=== PATIENT | male | born 1990 | race Caucasian/White ===

== ENCOUNTER 2022-08-07 12:06 | Inpatient (IN) ==
--- NOTE | 2022-08-07 12:27 | Emergency Department Note ---
History of Present Illness General Chief complaint: Illness Stated complaint: [facility] Time Seen by Provider: 08/07/22 12:15 Source: patient Mode of arrival: ambulatory Limitations: no limitations History of Present Illness This patient is a 32-year-old male who presents to the emergency department requesting alcohol and drug rehabilitation. Patient states that he has been using methamphetamine since April 2022. He was using daily but was able to stop for a few weeks, however used again last night. He also admits to EtOH use and states that he has drank a sixpack per day for years. Last night he had 1 shot of alcohol. Last night was also his last time using methamphetamine. He states that he knows this is not sustainable and he would like to stop using drugs and alcohol altogether. He reports some recent cough and congestion but denies shortness of breath. Allergies Allergy/AdvReac Type Severity Reaction Status Date / Time No Known Allergies Allergy Verified 08/07/22 17:05 Past Med/Surg History Medical History (Updated 08/07/22 @ 21:13 by Bekah Gutierrez PA-C) Alcohol abuse with withdrawal Methamphetamine use No pertinent family history No significant past medical history Tachycardia Surgical History (Updated 08/07/22 @ 17:16 by WILLY Huff) No pertinent past surgical history Social History (Updated 08/07/22 @ 13:07 by Bekah Gutierrez PA-C) Smoking Status: Current every day smoker Second Hand Exposure: No; Do You Dip or Chew Tobacco: No; Tobacco Cessation Education Requested by Patient: No Hx Alcohol Use: Yes Alcohol type: beer Alcohol type Comment: 6 pack of beer Alcohol Intake Frequency Comment: daily Hx Substance Use: Yes Non-Prescribed Medications: Methamphetamines Last Used Substance: Days (ago) Last Used Substance Other:: One day ago Communication Ability: Effective Harp Maker Required: No Beliefs That Will Affect Care: None Current Living Situation: Other Current Living Situation Comment: Lives with roommate whom he rents to Other Information That Helps Us Care for You: No Feels Safe at Home: Yes Safety Concerns: Feels Safe At This Time Assistive Devices: None Physical Exam Vital Signs Vital Signs - 24 hr 08/07/22 12:13 08/07/22 12:13 08/07/22 12:51 Temperature 36.8 C 36.6 C Temperature Source Temporal Artery Scan Temporal Artery Scan Pulse Rate 111 H 107 H Pulse Rate from SpO2 Sensor Respiratory Rate 16 18 Blood Pressure 190/91 H Blood Pressure Mean 124 Pulse Oximetry 98 98 Oxygen Delivery Method Sepsis Recent Fever Within 48 Hours No Sepsis New/Unexplained Change in Mental Status N/A Sepsis Action Taken by Nursing No Action Required 08/07/22 12:29 08/07/22 12:50 08/07/22 13:00 Temperature Temperature Source Pulse Rate 102 H 104 H Pulse Rate from SpO2 Sensor 109 H 104 H Respiratory Rate 20 22 Blood Pressure Blood Pressure Mean Pulse Oximetry 99 98 98 Oxygen Delivery Method Room Air Sepsis Recent Fever Within 48 Hours Sepsis New/Unexplained Change in Mental Status Sepsis Action Taken by Nursing 08/07/22 13:30 08/07/22 13:58 08/07/22 13:58 Temperature Temperature Source Pulse Rate 110 H 114 H Pulse Rate from SpO2 Sensor 111 H 115 H Respiratory Rate 20 23 Blood Pressure 142/88 H 185/103 H Blood Pressure Mean 106 130 Pulse Oximetry 99 98 Oxygen Delivery Method Sepsis Recent Fever Within 48 Hours Sepsis New/Unexplained Change in Mental Status Sepsis Action Taken by Nursing 08/07/22 14:00 08/07/22 14:00 08/07/22 14:30 Temperature Temperature Source Pulse Rate 113 H Pulse Rate from SpO2 Sensor 113 H Respiratory Rate 24 Blood Pressure 191/113 H 192/122 H Blood Pressure Mean 139 145 Pulse Oximetry 98 Oxygen Delivery Method Sepsis Recent Fever Within 48 Hours Sepsis New/Unexplained Change in Mental Status Sepsis Action Taken by Nursing 08/07/22 14:30 08/07/22 15:00 08/07/22 15:00 Temperature Temperature Source Pulse Rate 113 H Pulse Rate from SpO2 Sensor 104 H Respiratory Rate 17 Blood Pressure 176/119 H Blood Pressure Mean 138 Pulse Oximetry 98 Oxygen Delivery Method Sepsis Recent Fever Within 48 Hours Sepsis New/Unexplained Change in Mental Status Sepsis Action Taken by Nursing 08/07/22 15:30 08/07/22 15:30 Temperature Temperature Source Pulse Rate 109 H Pulse Rate from SpO2 Sensor Respiratory Rate 20 Blood Pressure 174/103 H Blood Pressure Mean 126 Pulse Oximetry Oxygen Delivery Method Sepsis Recent Fever Within 48 Hours Sepsis New/Unexplained Change in Mental Status Sepsis Action Taken by Nursing VITALS: Vitals are noted on the nurse's note and reviewed by myself. GENERAL: This is a 32-year-old male, in no acute distress, well-developed well- nourished. SKIN: The skin was without rashes. EARS: External auditory canals clear, tympanic membranes pearly orr without er ythema or effusion bilaterally. EYES: Pupils equal round and reactive to light and accommodation. Extraocular movements intact. MOUTH: Mucous membranes moist. Tonsils are not enlarged. Pharynx without erythema or exudate. NECK: Supple without nuchal rigidity. No lymphadenopathy. HEART: Regular rate and rhythm without murmurs gallops or rubs. LUNGS: Clear to auscultation bilaterally without wheezes, rales or rhonchi. ABDOMEN: Positive bowel sounds x 4. Soft, nontender to palpation MUSCULOSKELETAL: Full range of motion throughout. Strength 5/5 throughout. NEURO: Patient was alert and oriented to person place and time. No focal neurological deficits. Course Administered Medications Thiamine HCl 100 mg/ Syringe 10 mls @ 2 mls/min IV QAM [facility] Stop: 09/06/22 17:14 Last Admin: 08/07/22 17:53 Dose: 2 mls/min Documented By: REBEKAH Folic Acid 1 mg/ Syringe 10 mls @ 5 mls[facility] [place] 09/06/22 17:14 Last Admin: 08/07/22 17:53 Dose: 5 mls/min Documented By: REBEKAH Discontinued Medications Gabapentin (Gabapentin 600 Mg Tab) 1,200 mg PO NOW ONE Stop: 08/07/22 17:31 Last Admin: 08/07/22 17:53 Dose: 1,200 mg Documented By: REBEKAH Sodium Chloride (Nss 1000ml) 1,000 mls @ 999 mls/hr IV .Q1H1M ONE Stop: 08/07/22 13:29 Last Infusion: 08/07/22 13:56 Dose: 0 mls/hr Documented By: Admin: 08/07/22 12:51 Dose: 999 mls/hr Documented By: REBEKAH Multivitamins 10 ml/ Thiamine HCl 100 mg/ Folic Acid 1 mg/Sodium Chloride 1,011.2 mls @ 500 mls/hr IV .Q2H2M ONE Stop: 08/07/22 19:31 Last Admin: 08/07/22 18:24 Dose: 500 mls/hr Documented By: REBEKAH Lorazepam (Lorazepam 2 Mg/1 Ml Vial) 1 mg IV NOW STA Stop: 08/07/22 12:30 Last Admin: 08/07/22 12:51 Dose: 1 mg Documented By: REBEKAH Medical Decision Making Differential Diagnosis Overdose, toxicologic, infection, hypoglycemia, electrolyte abnormalities, cardiac sources, intracerebral event, neurologic, trauma, as well as other pathologies. Home Medications Current Medication List: was personally reviewed by me Laboratory Data Attestation: I reviewed the patient's lab results. 08/07/22 12:55 08/07/22 12:55 Lab Results 08/07/22 08/07/22 08/07/22 Range/Units 12:55 12:55 12:55 WBC 11.76 H (4.8-10.8) K/ul RBC 5.13 (4.20-5.40) M/uL Hgb 15.7 (12.0-16.0) g/dl Hct 45.0 (37.0-47.0) % MCV 87.7 (80.0-100.0) fL MCH 30.6 (25.0-34.0) pg MCHC 34.9 (32.0-36.0) g/dL RDW Std Deviation 40.9 (36.4-46.3) fL RDW Coeff of Savi 12.7 (11.5-14.5) % Plt Count 390 (130-400) K/uL MPV 10.3 (9.4-12.4) fL Immature Gran % (Auto) 0.3 % Neut % (Auto) 70.4 % Lymph % (Auto) 21.7 % Haskell % (Auto) 6.6 % Eos % (Auto) 0.3 % Baso % (Auto) 0.7 % Neut # (Auto) 8.28 H (1.40-6.50) K/uL Lymph # (Auto) 2.55 (1.2-3.4) K/uL [place] # (Auto) 0.78 H (0.11-0.59) K/uL Eos # (Auto) 0.03 (0-0.50) K/uL Baso # (Auto) 0.08 (0-0.2) K/uL Immature Gran # (Auto) 0.04 (0.01-0.20) K/uL Sodium 139 (136-145) mmol/L Potassium 3.6 (3.5-5.1) mmol/L Chloride 101 (98-107) mmol/L Carbon Dioxide 30 (21-32) mmol/L Anion Gap 8 (3-11) BUN 12 (6-23) mg/dl Creatinine 0.79 (0.6-1.2) mg/dl Est Cr Clr Drug Dosing 128.1 ml/min Est GFR ( Amer) 115.6 ml/min Est GFR (Non-Af Amer) 99.8 ml/min BUN/Creatinine Ratio 15.2 (10-20) Glucose 108 H (70-99(Fasting)) mg/dl Calcium 10.5 H (8.5-10.1) mg/dl Phosphorus 3.6 (2.5-4.9) mg/dl Magnesium 2.2 (1.7-2.4) mg/dl Total Bilirubin 0.3 (0.2-1.0) mg/dl Direct Bilirubin 0.0 (0-0.2) mg/dl AST 26 (13-39) U/L ALT 26 (7-52) U/L Alkaline Phosphatase 106 H (34-104) U/L Total Protein 8.5 H (6.0-8.3) gm/dl Albumin 4.8 (3.4-5.0) gm/dl Globulin 3.7 (2.5-4.0) gm/dl Albumin/Globulin Ratio 1.3 (0.9-2) TSH 3.361 (0.300-4.500) uIu/ml Urine Color Urine Appearance (Clear) Urine pH (4.5-7.5) Ur Specific [place] (1.000-1.030) Urine Protein (Negative) Urine Glucose (UA) (Negative) Urine Ketones (Negative) Urine Blood (Negative) Urine Nitrite (Negative) Urine Bilirubin (Negative) Urine Urobilinogen (Negative) Ur Leukocyte Esterase (Negative) Salicylates (3.0-30) mg/dl Urine Opiates Screen (Neg) Ur Methadone, Qual (Neg) Acetaminophen (10-30) ug/ml Urine Barbiturates (Neg) Ur Phencyclidine (PCP) (Neg) U Amphetamin/Meth Scrn (Neg) MDMA (Ecstasy) Screen (Neg) U Benzodiazepines Scrn (Neg) Ur Cocaine Metabolite (Neg) U Marijuana (THC) Screen (Neg) Ethyl Alcohol mg/dL (<10.0) mg/dl SARS-CoV-2, RNA, NAAT (NEGATIVE) 08/07/22 08/07/22 08/07/22 Range/Units 12:55 12:55 12:55 WBC (4.8-10.8) K/ul RBC (4.20-5.40) M/uL Hgb (12.0-16.0) g/dl Hct (37.0-47.0) % MCV (80.0-100.0) fL MCH (25.0-34.0) pg MCHC (32.0-36.0) g/dL RDW Std Deviation (36.4-46.3) fL RDW Coeff of Savi (11.5-14.5) % Plt Count (130-400) K/uL MPV (9.4-12.4) fL Immature Gran % (Auto) % Neut % (Auto) % Lymph % (Auto) % [place] % (Auto) % Eos % (Auto) % Baso % (Auto) % Neut # (Auto) (1.40-6.50) K/uL Lymph # (Auto) (1.2-3.4) K/uL [place] # (Auto) (0.11-0.59) K/uL Eos # (Auto) (0-0.50) K/uL Baso # (Auto) (0-0.2) K/uL Immature Gran # (Auto) (0.01-0.20) K/uL Sodium (136-145) mmol/L Potassium (3.5-5.1) mmol/L Chloride (98-107) mmol/L Carbon Dioxide (21-32) mmol/L Anion Gap (3-11) BUN (6-23) mg/dl Creatinine (0.6-1.2) mg/dl Est Cr Clr Drug Dosing ml/min Est GFR ( Amer) ml/min Est GFR (Non-Af Amer) ml/min BUN/Creatinine Ratio (10-20) Glucose (70-99(Fasting)) mg/dl Calcium (8.5-10.1) mg/dl Phosphorus (2.5-4.9) mg/dl Magnesium (1.7-2.4) mg/dl Total Bilirubin (0.2-1.0) mg/dl Direct Bilirubin (0-0.2) mg/dl AST (13-39) U/L ALT (7-52) U/L Alkaline Phosphatase (34-104) U/L Total Protein (6.0-8.3) gm/dl Albumin (3.4-5.0) gm/dl Globulin (2.5-4.0) gm/dl Albumin/Globulin Ratio (0.9-2) TSH (0.300-4.500) uIu/ml Urine Color Urine Appearance (Clear) Urine pH (4.5-7.5) Ur Specific [place] (1.000-1.030) Urine Protein (Negative) Urine Glucose (UA) (Negative) Urine Ketones (Negative) Urine Blood (Negative) Urine Nitrite (Negative) Urine Bilirubin (Negative) Urine Urobilinogen (Negative) Ur Leukocyte Esterase (Negative) Salicylates < 3.0 L (3.0-30) mg/dl Urine Opiates Screen (Neg) Ur Methadone, Qual (Neg) Acetaminophen < 3 L (10-30) ug/ml Urine Barbiturates (Neg) Ur Phencyclidine (PCP) (Neg) U Amphetamin/Meth Scrn (Neg) MDMA (Ecstasy) Screen (Neg) U Benzodiazepines Scrn (Neg) Ur Cocaine Metabolite (Neg) U Marijuana (THC) Screen (Neg) Ethyl Alcohol mg/dL < 10.0 (<10.0) mg/dl SARS-CoV-2, RNA, NAAT NEGATIVE (NEGATIVE) 08/07/22 08/07/22 Range/Units 14:43 14:43 WBC (4.8-10.8) K/ul RBC (4.20-5.40) M/uL Hgb (12.0-16.0) g/dl Hct (37.0-47.0) % MCV (80.0-100.0) fL MCH (25.0-34.0) pg MCHC (32.0-36.0) g/dL RDW Std Deviation (36.4-46.3) fL RDW Coeff of Savi (11.5-14.5) % Plt Count (130-400) K/uL MPV (9.4-12.4) fL Immature Gran % (Auto) % Neut % (Auto) % Lymph % (Auto) % Haskell % (Auto) % Eos % (Auto) % Baso % (Auto) % Neut # (Auto) (1.40-6.50) K/uL Lymph # (Auto) (1.2-3.4) K/uL Haskell # (Auto) (0.11-0.59) K/uL Eos # (Auto) (0-0.50) K/uL Baso # (Auto) (0-0.2) K/uL Immature Gran # (Auto) (0.01-0.20) K/uL Sodium (136-145) mmol/L Potassium (3.5-5.1) mmol/L Chloride (98-107) mmol/L Carbon Dioxide (21-32) mmol/L Anion Gap (3-11) BUN (6-23) mg/dl Creatinine (0.6-1.2) mg/dl Est Cr Clr Drug Dosing ml/min Est GFR ( Amer) ml/min Est GFR (Non-Af Amer) ml/min BUN/Creatinine Ratio (10-20) Glucose (70-99(Fasting)) mg/dl Calcium (8.5-10.1) mg/dl Phosphorus (2.5-4.9) mg/dl Magnesium (1.7-2.4) mg/dl Total Bilirubin (0.2-1.0) mg/dl Direct Bilirubin (0-0.2) mg/dl AST (13-39) U/L ALT (7-52) U/L Alkaline Phosphatase (34-104) U/L Total Protein (6.0-8.3) gm/dl Albumin (3.4-5.0) gm/dl Globulin (2.5-4.0) gm/dl Albumin/Globulin Ratio (0.9-2) TSH (0.300-4.500) uIu/ml Urine Color Yellow Urine Appearance Clear (Clear) Urine pH 7.5 (4.5-7.5) Ur Specific [place] 1.006 (1.000-1.030) Urine Protein Negative (Negative) Urine Glucose (UA) Negative (Negative) Urine Ketones Negative (Negative) Urine Blood Negative (Negative) Urine Nitrite Negative (Negative) Urine Bilirubin Negative (Negative) Urine Urobilinogen Negative (Negative) Ur Leukocyte Esterase Negative (Negative) Salicylates (3.0-30) mg/dl Urine Opiates Screen Neg (Neg) Ur Methadone, Qual Neg (Neg) Acetaminophen (10-30) ug/ml Urine Barbiturates Neg (Neg) Ur Phencyclidine (PCP) Neg (Neg) U Amphetamin/Meth Scrn Pos H (Neg) MDMA (Ecstasy) Screen Neg (Neg) U Benzodiazepines Scrn Neg (Neg) Ur Cocaine Metabolite Neg (Neg) U Marijuana (THC) Screen Pos H (Neg) Ethyl Alcohol mg/dL (<10.0) mg/dl SARS-CoV-2, RNA, NAAT (NEGATIVE) ECG Data Attestation: I personally reviewed and interpreted this ECG as follows: Indication: + toxicologic Rate (beats per minute): 105 Rhythm: + sinus tachycardia ECG Intervals/blocks: + Normal QRS ECG ST segments: + Normal ST segments Comparison ECG Date: no prior available MDM Narrative Continuous nitrating acid mixer: Order was placed for continuous nitrating acid mixer. Patient was placed on the nitrating acid mixer. Patient was noted to be in sinus tachycardia at an initial rate of 111 bpm. The patient is a 32-year-old male who presents today requesting rehabilitation for drug use. Patient has a history of methamphetamine and alcohol use. He would like to stop using both of these. He has had some withdrawal symptoms in the past and a friend with him notes that he has had some recent paranoia. She states this is "the worst she has ever seen him." Medical work-up was obtained as above, labs reviewed with no significant findings. EKG shows a sinus tachycardia. UDS positive for methamphetamines and marijuana. Case management was consulted and assisted the patient in contacting rehab facilities in [facility] for funding. Patient was able to get a bed at [facility] tomorrow morning. Patient does not feel safe going home and his friend does not feel safe taking him home. I do feel he would benefit from receiving benzodiazepines here for alcohol withdrawal. [facility]. Impression & Plan Alcohol abuse with withdrawal, Methamphetamine use Discharge Plan Visit Data Chief Complaint: Illness Stated Complaint: [facility] ED Provider: Chintan Cuellar ED Midlevel Provider: Bekah Gutierrez Discharge Problem: Alcohol abuse with withdrawal, Methamphetamine use Patient Disposition: Admitted As Inpatient Discharge Instructions Interventions: ED Discharge Assessment Last Done: 08/07/22 19:42
[2022-08-07] MEDS ORDERED: LORazepam 2 MG/1 ML VIAL IV STA (12:29)
[2022-08-07] MEDS ORDERED: SODIUM CHLORIDE 0.9% 1000ML 1,000 ML IV ONE (12:29)
[2022-08-07 13:59] LABS: Basophils # (auto) 0.08 K/uL (0-0.2); Basophils % (auto) 0.7 %; Eosinophils # (auto) 0.03 K/uL (0-0.50); Eosinophils % (auto) 0.3 %; Immature Granulocytes # (auto) 0.04 K/uL (0.01-0.20); Immature Granulocytes % (auto) 0.3 %; Lymphocytes # (auto) 2.55 K/uL (1.2-3.4); Lymphocytes % (auto) 21.7 %; Mean Corpuscular Hemoglobin 30.6 pg (25.0-34.0); Mean Corpuscular Hgb Conc 34.9 g/dL (32.0-36.0); Mean Corpuscular Volume 87.7 fL (80.0-100.0); Mean Platelet Volume 10.3 fL (9.4-12.4); Monocytes # (auto) 0.78 K/uL (0.11-0.59); Monocytes % (auto) 6.6 %; Neutrophils # (auto) 8.28 K/uL (1.40-6.50); Neutrophils % (auto) 70.4 %; Platelet Count 390 K/uL (130-400); RDW Coefficient of Variation 12.7 % (11.5-14.5); RDW Standard Deviation 40.9 fL (36.4-46.3); White Blood Count 11.76 K/ul (4.8-10.8)
[2022-08-07 14:05] LABS: Albumin Level 4.8 gm/dl (3.4-5.0); Bilirubin,Total 0.3 mg/dl (0.2-1.0); Calcium 10.5 mg/dl (8.5-10.1); Potassium 3.6 mmol/L (3.5-5.1)
[2022-08-07 14:11] LABS: Albumin Globulin Ratio 1.3 (0.9-2); BUN Creatinine Ratio 15.2 (10-20); Globulin 3.7 gm/dl (2.5-4.0); Total Protein 8.5 gm/dl (6.0-8.3)
[2022-08-07 14:12] LABS: Acetaminophen < 3 ug/ml (10-30); Salicylate < 3.0 mg/dl (3.0-30)
[2022-08-07 14:53] LABS: Appearance Urine Clear (Clear); Bilirubin Urine Negative (Negative); Blood Urine Negative (Negative); Color Urine Yellow; Glucose Urine UA Negative (Negative); Ketones Urine Negative (Negative); Leukocyte Esterase Urine Negative (Negative); Nitrite Urine Negative (Negative); Protein Urine Negative (Negative); Specific Gravity Urine 1.006 (1.000-1.030); Urobilinogen Urine Negative (Negative); pH Urine 7.5 (4.5-7.5)
[2022-08-07 15:38] LABS: Amphetamines+Metham, Urine Pos (Neg); Barbiturates, Urine Neg (Neg); Benzodiazepine, Urine Neg (Neg); Cocaine, Urine Neg (Neg); MDMA (Ecstacy), Urine Neg (Neg); Methadone, Urine Neg (Neg); Opiate, Urine Neg (Neg); Phencyclidine, Urine Neg (Neg)
[2022-08-07] MEDS ORDERED: Ativan IV Alcohol Withdrawal--Active Protocol IV PRN (16:23)
[2022-08-07] MEDS ORDERED: ONDANSETRON INJ 2 MG/ML 2 ML VIAL IV PRN (16:23)
[2022-08-07] MEDS ORDERED: POLYETHYLENE (MIRALAX) 17 GM PACK PO PRN (16:23)
[2022-08-07] MEDS ORDERED: ALUMINUM/MAGNESIUM SUSP 30 ML UDC PO PRN (16:23)
[2022-08-07] MEDS ORDERED: ACETAMINOPHEN 325 MG TAB PO PRN (16:23)
[2022-08-07] MEDS ORDERED: Ativan PO Alcohol Withdrawal--Active Protocol PO PRN (16:23)
[2022-08-07] MEDS ORDERED: LORazepam 2 MG/1 ML VIAL IV PRN (16:23)
[2022-08-07] MEDS ORDERED: MAGNESIUM HYDROXIDE SUSP 30 ML UDC PO PRN (16:23)
--- NOTE | 2022-08-07 16:33 | History & Physical Report ---
Date of Service August 07, 2022 Assessment & Plan (1) Alcohol abuse with withdrawal: (2) Tachycardia: Plan: -Drinks approximately one 6 pack of beer per day -Reports that he drank 13 shots of Ivette last night -Tachycardic in ED; received 1 mg Ativan -AWSS scale protocol ordered; IV Thiamine and IV Folic Acid ordered now and to continue tomorrow -Banana bag ordered -Check Mg+ and Phos+ -Ativan 1 mg IV Q 8 PRN -Case management arranging transport possibly for AM on 08/08 for transfer to [facility]. (3) Methamphetamine use: Plan: -Started using 05/12 -Last use last evening at 2200 -Would like to proceed to rehabilitation for alcohol and rug rehab Plan Disposition: PCP: None Code Status: Full Code VTE Prophyalxis: Lovenox SQ A total of 57 minutes was spent with greater than 50% of that time personally reviewing all current laboratory work and diagnostic imaging studies obtained in the ED. Additionally, I was able to review the patients past medication reconciliation and history with direct visualization in the patients chart. Included in the time above, a portion of that time was spent assessing the patient while discussing and collaborating with specialists, if necessary, and making medical decisions regarding orders to be placed. All of the aforementioned completed while collaborating with Dr. Underwood for a full treatment plan. Please see her addendum for further details. History of Present Illness Chief Complaint: seeking rehabilitation Primary Care Provider: NO PCP Mr. Herrera is a 32-year-old male that presents to the emergency department seeking assistance with arrangement of alcohol and drug rehabilitation. Patient reports that he has used methamphetamine since 04/2022 and also is a daily alcohol drinker. Patient reports that he at times feels paranoia with reading magazine articles and watching TV shows that he feels are related directly to him. Patient with slight leukocytosis WBC 11.76. Otherwise electrolytes and other labs unremarkable. Urinalysis tox screen positive for marijuana and methamphetamine. Slight tachycardia in ED with response to 1 mg Ativan. Patient has hypertension but does not take any medication for this. 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 He says that his stress levels were high and recently terminated a relationship with a man which led him to feeling pressured into using by a peer. Patient has a friend that knows that he is here and is his point of contact. Patient indicates that his family would "not understand" so at this time did not feel he was able to reach out to them. ED case management arrange financial assistance for this gentleman through [facility] and goal is for him to be admitted to [facility] 08/08/2022. Case management arranging transportation details and confirm their capabilities. No other pertinent medical history. Patient will be admitted overnight for further evaluation and management. Please see A/P for further details. Allergies Allergy/AdvReac Type Severity Reaction Status Date / Time No Known Allergies Allergy Verified 08/07/22 17:05 Past Med/Surg History Medical History (Updated 08/07/22 @ 21:13 by Bekah Gutierrez PA-C) Alcohol abuse with withdrawal Methamphetamine use No pertinent family history No significant past medical history Tachycardia Surgical History (Updated 08/07/22 @ 17:16 by WILLY Huff) No pertinent past surgical history Social History (Updated 08/07/22 @ 13:07 by Bekah Gutierrez PA-C) Smoking Status: Current every day smoker Second Hand Exposure: No; Do You Dip or Chew Tobacco: No; Tobacco Cessation Education Requested by Patient: No Hx Alcohol Use: Yes Alcohol type: beer Alcohol type Comment: 6 pack of beer Alcohol Intake Frequency Comment: daily Hx Substance Use: Yes Non-Prescribed Medications: Methamphetamines Last Used Substance: Days (ago) Last Used Substance Other:: One day ago Communication Ability: Effective Sweeper Driver Required: No Beliefs That Will Affect Care: None Current Living Situation: Other Current Living Situation Comment: Lives with roommate whom he rents to Other Information That Helps Us Care for You: No Feels Safe at Home: Yes Safety Concerns: Feels Safe At This Time Assistive Devices: None Review of Systems Review of Systems: Neuro: (-) Falls, trauma, slurred speech HEENT: (-) YE, dizziness, dysphagia, visual or auditory changes CV: (-) CP, palpitations, swelling Resp: (-) SOB GI: (-) appetite changes, N/V/D, bowel changes : (-) urinary changes Skin: (-) rashes Psych: (+) anxiety, depression Physical Exam Physical Exam: Neuro: AAOx4, PERRLA, no aphagia, memory changes, CNII-XII grossly intact HEENT: head normocephalic, moist mucus membranes CV: S1/S2, tachycardic (-) M/G/R, (-) edema, cap refill < 3 seconds Resp: Lungs CTA in all pineda. On RA GI: Abdomen S/NT/ND, Ax4 bowel sounds, (-) CVA tenderness Musculoskeletal: 5/5 B/L UE strength, 5/5 B/L LE strength. No gait disturbance Skin: (-) rashes , (-) erythema. Psych: paranoid mood Results & Data Results & Data ([facility]) Vital Signs (Past 12 Hours) Vital Signs Temp Pulse Resp BP Pulse Ox O2 Del Method 08/07/22 15:30 109 H 20 08/07/22 15:30 174/103 H 08/07/22 15:00 113 H 17 08/07/22 15:00 176/119 H 08/07/22 14:30 98 08/07/22 14:30 192/122 H 08/07/22 14:00 113 H 24 98 08/07/22 14:00 191/113 H 08/07/22 13:58 185/103 H 08/07/22 13:58 114 H 23 98 08/07/22 13:30 110 H 20 142/88 H 99 08/07/22 13:00 104 H 22 98 08/07/22 12:50 102 H 20 98 08/07/22 12:29 99 Room Air 08/07/22 12:51 107 H 08/07/22 12:13 36.6 C 18 98 08/07/22 12:13 36.8 C 111 H 16 190/91 H 98 Laboratory Results Short CBC 08/07/22 Range/Units 12:55 WBC 11.76 H (4.8-10.8) K/ul Hgb 15.7 (12.0-16.0) g/dl Hct 45.0 (37.0-47.0) % Plt Count 390 (130-400) K/uL BMP 08/07/22 12:55 Sodium 139 Potassium 3.6 Chloride 101 Carbon Dioxide 30 BUN 12 Creatinine 0.79 Glucose 108 H Calcium 10.5 H Liver Function 08/07/22 Range/Units 12:55 Total Bilirubin 0.3 (0.2-1.0) mg/dl AST 26 (13-39) U/L ALT 26 (7-52) U/L Alkaline Phosphatase 106 H (34-104) U/L Albumin 4.8 (3.4-5.0) gm/dl Urine 08/07/22 Range/Units 14:43 Urine Color Yellow Urine Appearance Clear (Clear) Urine pH 7.5 (4.5-7.5) Ur Specific [place] 1.006 (1.000-1.030) Urine Protein Negative (Negative) Urine Glucose (UA) Negative (Negative) Code Status & VTE Plan Code Status Full code in the event of cardiac or respiratory arrest VTE Prophylaxis Plan VTE Prophylaxis will be ordered: Yes Supervising Physician Co-Signing Physician Notes Patient seen and examined by me, care coordinated with WILLY Hardwick, please refer to her note above for further detail. Pt is a 32 yo male that presents to the emergency department seeking assistance with arrangement of alcohol and drug rehabilitation. Patient reports that he has used methamphetamine since 04/2022 and also is a daily alcohol drinker. Currently he is sitting up in bed, in no acute distress, eating dinner. He is awake and able to answer some questions appropriately, however sometimes not able to provide thorough history, says he does not quite remember. Denies any chest pain palpitations, headache, shortness of breath. Also denies any abdominal pain nausea or vomiting. Reports that he would like to go to rehab. Reports that he was using methamphetamine with a girl who is his neighbor. On physical exam, slightly tachycardic. BP slightly elevated. Received IV Ativan in ED. Lungs are clear to auscultation. Abdomen soft nontender nondistended. No lower extremity edema noted. Moves extremities. Patient to be admitted to the hospital for now, gabapentin and Ativan ordered, thiamine folic acid ordered. Discussed with the case management in the ED, they are to confirm the arrangement made with the patient and clarify capabilities of the rehab. MD Kj
[2022-08-07] MEDS ORDERED: GABAPENTIN 1200MG ALCOHOL WITHDRAWAL LOAD PO STA (17:21)
[2022-08-07] MEDS ORDERED: GABAPENTIN 600 MG TAB PO ONE (17:30)
[2022-08-07] MEDS ORDERED: MULTI-VITAMIN INFUSION 10 ML, THIAMINE HCL 100 MG, FOLIC ACID 1 MG in SODIUM CHLORIDE 0... IV ONE (17:30)
[2022-08-07 17:42] LABS: Magnesium 2.2 mg/dl (1.7-2.4)
[2022-08-07 17:48] LABS: Phosphorus 3.6 mg/dl (2.5-4.9)
[2022-08-07] MEDS: THIAMINE HCL 100 MG in SYRINGE 9 ML IV SCH (17:53)
[2022-08-07] MEDS: FOLIC ACID 1 MG in SYRINGE 9.8 ML IV SCH (17:53)
--- NOTE | 2022-08-07 23:19 | Electrocardiogram Report ---
Test Reason : Blood Pressure : / mmHG Vent. Rate : 105 BPM Atrial Rate : 105 BPM P-R Int : 134 ms QRS Dur : 102 ms QT Int : 336 ms P-R-T Axes : 063 077 051 degrees QTc Int : 444 ms Poor data quality, interpretation may be adversely affected Sinus tachycardia Otherwise normal ECG No previous ECGs available Confirmed by Stephane Martin ([id number]) on 08/07/2022 11:18:39 PM Referred By: REFERRED SELF Confirmed By:Bud Martin
[2022-08-08] MEDS: GABAPENTIN 600 MG TAB PO SCH ×2 (01:22→05:21)
[2022-08-08 06:03] LABS: Hematocrit (blood only) 42.2 % (42.0-52.0); Hemoglobin 14.4 g/dl (14.0-18.0); Mean Corpuscular Hemoglobin 30.6 pg (25.0-34.0); Mean Corpuscular Hgb Conc 34.1 g/dL (32.0-36.0); Mean Corpuscular Volume 89.8 fL (80.0-100.0); Mean Platelet Volume 9.7 fL (9.4-12.4); Platelet Count 351 K/uL (130-400); RDW Coefficient of Variation 12.9 % (11.5-14.5); RDW Standard Deviation 42.5 fL (36.4-46.3); White Blood Count 8.61 K/ul (4.8-10.8)
[2022-08-08 06:24] LABS: BUN Creatinine Ratio 12.6 (10-20); Calcium 9.4 mg/dl (8.5-10.1); Est GFR (African American) 123.1 ml/min; Est GFR (Non-African American) 106.2 ml/min; Magnesium 2.1 mg/dl (1.7-2.4); Phosphorus 4.4 mg/dl (2.5-4.9)
--- NOTE | 2022-08-08 08:39 | Hospitalist Progress Note ---
Date of Service August 08, 2022 Assessment & Plan (1) Alcohol abuse with withdrawal: (2) Tachycardia: Plan: -Drinks approximately one 6 pack of beer per day -Reports that he drank 13 shots of Ivette night before admission -Tachycardic in ED; received 1 mg Ativan -AWSS scale protocol ordered; IV Thiamine and IV Folic Acid ordered now and to continue -Banana bag ordered -Check Mg+ and Phos+ -Ativan 1 mg IV Q 8 PRN -Case management arranging transport possibly for AM on 08/08 for transfer to [facility]. 08/08 this morning patient is sitting up in chair, alert oriented answering simple questions appropriately. -Was started on gabapentin protocol on admission. [facility] [place] [facility] the phone this morning, they are expecting the patient to arrive today. (3) Methamphetamine use: Plan: -Started using 05/12 -Last use last evening at 2200 -Would like to proceed to rehabilitation for alcohol and rug rehab Plan Disposition: Plan to DC to rehab Admission and Anticipated Discharge Date Admission Date: August 07, 2022 Subjective Patient seen in follow-up of alcohol and methamphetamine use, seeking rehab Reportedly, overnight patient took his IV out and drank content of banana bag, thinking that it was not infusing fast enough This morning he is sitting up in chair, in no acute distress, all dressed, as he is ready for rehab He is awake alert, tells me that yesterday in the ER he saw people that were not there, currently he feels well and does not see anything unusual Denies any fevers chills chest pain shortness of breath, cough or abdominal pain. [facility] and confirmed their address and plan to be admitted today. I also confirmed with [facility] this morning over the phone, that patient is appropriate to be there. They have RNs and physician, and do not need any prescription medications, as they will be managing any medications, and possible withdrawal symptoms. Review of Systems Review of Systems: All systems reviewed & are unremarkable except as noted in Subjective Physical Exam Physical Exam: General: young M in NAD Neuro/Psych : AAOx4, PERRL, an swering simple que stions appropriate ly, no facial asym metry, moves extre mities, speech flu ent, denies any vi sual or tactile sethi llucinations HEENT : NC/AT. EOMI, charles st mucus membranes CV: S1/S2, rrr, ( -) edema Resp: Sean gs CTA in all fiel ds. On RA GI: Abdo men S/NT/ND, Ax4 b owel sounds, (-) C VA tenderness Musc uloskeletal: moves extremities, no w eakness Skin: (-) rashes , (-) eryth shirley. Results & Data Results & Data ([facility]) Vital Signs (Past 12 Hours) Vital Signs Temp Pulse Pulse Resp BP BP Pulse Ox 08/08/22 07:31 36.7 C 79 20 159/100 H 98 08/08/22 04:00 36.6 C 85 18 145/88 H 98 08/07/22 23:40 36.8 C 83 18 169/93 H 98 08/07/22 22:20 108 H O2 Del Method 08/08/22 07:31 Room Air 08/08/22 04:00 Room Air 08/07/22 23:40 Room Air 08/07/22 22:20 Laboratory Results 08/08/22 08/08/22 08/07/22 Range/Units 05:41 05:41 14:43 WBC 8.61 (4.8-10.8) K/ul RBC 4.70 (4.20-5.40) M/uL Hgb 14.4 (12.0-16.0) g/dl Hct 42.2 (37.0-47.0) % MCV 89.8 (80.0-100.0) fL MCH 30.6 (25.0-34.0) pg MCHC 34.1 (32.0-36.0) g/dL RDW Std Deviation 42.5 (36.4-46.3) fL RDW Coeff of Savi 12.9 (11.5-14.5) % Plt Count 351 (130-400) K/uL MPV 9.7 (9.4-12.4) fL Immature Gran % (Auto) % Neut % (Auto) % Lymph % (Auto) % [place] % (Auto) % Eos % (Auto) % Baso % (Auto) % Neut # (Auto) (1.40-6.50) K/uL Lymph # (Auto) (1.2-3.4) K/uL [place] # (Auto) (0.11-0.59) K/uL Eos # (Auto) (0-0.50) K/uL Baso # (Auto) (0-0.2) K/uL Immature Gran # (Auto) (0.01-0.20) K/uL Sodium 137 (136-145) mmol/L Potassium 4.0 (3.5-5.1) mmol/L Chloride 103 (98-107) mmol/L Carbon Dioxide 31 (21-32) mmol/L Anion Gap 3 (3-11) BUN 12 (6-23) mg/dl Creatinine 0.95 (0.6-1.2) mg/dl Est Cr Clr Drug Dosing 120.0 ml/min Est GFR ( Amer) 123.1 ml/min Est GFR (Non-Af Amer) 106.2 ml/min BUN/Creatinine Ratio 12.6 (10-20) Glucose 100 H (70-99(Fasting)) mg/dl Calcium 9.4 (8.5-10.1) mg/dl Phosphorus 4.4 (2.5-4.9) mg/dl Magnesium 2.1 (1.7-2.4) mg/dl Total Bilirubin (0.2-1.0) mg/dl Direct Bilirubin (0-0.2) mg/dl AST (13-39) U/L ALT (7-52) U/L Alkaline Phosphatase (34-104) U/L Total Protein (6.0-8.3) gm/dl Albumin (3.4-5.0) gm/dl Globulin (2.5-4.0) gm/dl Albumin/Globulin Ratio (0.9-2) TSH (0.300-4.500) uIu/ml Urine Color Urine Appearance (Clear) Urine pH (4.5-7.5) Ur Specific [place] (1.000-1.030) Urine Protein (Negative) Urine Glucose (UA) (Negative) Urine Ketones (Negative) Urine Blood (Negative) Urine Nitrite (Negative) Urine Bilirubin (Negative) Urine Urobilinogen (Negative) Ur Leukocyte Esterase (Negative) Salicylates (3.0-30) mg/dl Urine Opiates Screen (Neg) Ur Methadone, Qual (Neg) Acetaminophen (10-30) ug/ml Urine Barbiturates (Neg) Ur Phencyclidine (PCP) (Neg) U Amphetamines Confirm Pending U Amphetamin/Meth Scrn (Neg) U Methamphetamin Confrm Pending MDMA (Ecstasy) Screen (Neg) U Benzodiazepines Scrn (Neg) Ur Cocaine Metabolite (Neg) U Marijuana (THC) Screen (Neg) U Marijuana THC Carboxy Pending Drug Screen Comment Pending Ethyl Alcohol mg/dL (<10.0) mg/dl SARS-CoV-2, RNA, NAAT (NEGATIVE) 08/07/22 08/07/22 08/07/22 Range/Units 14:43 14:43 12:55 WBC (4.8-10.8) K/ul RBC (4.20-5.40) M/uL Hgb (12.0-16.0) g/dl Hct (37.0-47.0) % MCV (80.0-100.0) fL MCH (25.0-34.0) pg MCHC (32.0-36.0) g/dL RDW Std Deviation (36.4-46.3) fL RDW Coeff of Savi (11.5-14.5) % Plt Count (130-400) K/uL MPV (9.4-12.4) fL Immature Gran % (Auto) % Neut % (Auto) % Lymph % (Auto) % [place] % (Auto) % Eos % (Auto) % Baso % (Auto) % Neut # (Auto) (1.40-6.50) K/uL Lymph # (Auto) (1.2-3.4) K/uL [place] # (Auto) (0.11-0.59) K/uL Eos # (Auto) (0-0.50) K/uL Baso # (Auto) (0-0.2) K/uL Immature Gran # (Auto) (0.01-0.20) K/uL Sodium (136-145) mmol/L Potassium (3.5-5.1) mmol/L Chloride (98-107) mmol/L Carbon Dioxide (21-32) mmol/L Anion Gap (3-11) BUN (6-23) mg/dl Creatinine (0.6-1.2) mg/dl Est Cr Clr Drug Dosing ml/min Est GFR ( Amer) ml/min Est GFR (Non-Af Amer) ml/min BUN/Creatinine Ratio (10-20) Glucose (70-99(Fasting)) mg/dl Calcium (8.5-10.1) mg/dl Phosphorus (2.5-4.9) mg/dl Magnesium (1.7-2.4) mg/dl Total Bilirubin (0.2-1.0) mg/dl Direct Bilirubin (0-0.2) mg/dl AST (13-39) U/L ALT (7-52) U/L Alkaline Phosphatase (34-104) U/L Total Protein (6.0-8.3) gm/dl Albumin (3.4-5.0) gm/dl Globulin (2.5-4.0) gm/dl Albumin/Globulin Ratio (0.9-2) TSH (0.300-4.500) uIu/ml Urine Color Yellow Urine Appearance Clear (Clear) Urine pH 7.5 (4.5-7.5) Ur Specific [place] 1.006 (1.000-1.030) Urine Protein Negative (Negative) Urine Glucose (UA) Negative (Negative) Urine Ketones Negative (Negative) Urine Blood Negative (Negative) Urine Nitrite Negative (Negative) Urine Bilirubin Negative (Negative) Urine Urobilinogen Negative (Negative) Ur Leukocyte Esterase Negative (Negative) Salicylates (3.0-30) mg/dl Urine Opiates Screen Neg (Neg) Ur Methadone, Qual Neg (Neg) Acetaminophen (10-30) ug/ml Urine Barbiturates Neg (Neg) Ur Phencyclidine (PCP) Neg (Neg) U Amphetamines Confirm U Amphetamin/Meth Scrn Pos H (Neg) U Methamphetamin Confrm MDMA (Ecstasy) Screen Neg (Neg) U Benzodiazepines Scrn Neg (Neg) Ur Cocaine Metabolite Neg (Neg) U Marijuana (THC) Screen Pos H (Neg) U Marijuana THC Carboxy Drug Screen Comment Ethyl Alcohol mg/dL (<10.0) mg/dl SARS-CoV-2, RNA, NAAT NEGATIVE (NEGATIVE) 08/07/22 08/07/22 08/07/22 Range/Units 12:55 12:55 12:55 WBC (4.8-10.8) K/ul RBC (4.20-5.40) M/uL Hgb (12.0-16.0) g/dl Hct (37.0-47.0) % MCV (80.0-100.0) fL MCH (25.0-34.0) pg MCHC (32.0-36.0) g/dL RDW Std Deviation (36.4-46.3) fL RDW Coeff of Savi (11.5-14.5) % Plt Count (130-400) K/uL MPV (9.4-12.4) fL Immature Gran % (Auto) % Neut % (Auto) % Lymph % (Auto) % [place] % (Auto) % Eos % (Auto) % Baso % (Auto) % Neut # (Auto) (1.40-6.50) K/uL Lymph # (Auto) (1.2-3.4) K/uL [place] # (Auto) (0.11-0.59) K/uL Eos # (Auto) (0-0.50) K/uL Baso # (Auto) (0-0.2) K/uL Immature Gran # (Auto) (0.01-0.20) K/uL Sodium (136-145) mmol/L Potassium (3.5-5.1) mmol/L Chloride (98-107) mmol/L Carbon Dioxide (21-32) mmol/L Anion Gap (3-11) BUN (6-23) mg/dl Creatinine (0.6-1.2) mg/dl Est Cr Clr Drug Dosing ml/min Est GFR ( Amer) ml/min Est GFR (Non-Af Amer) ml/min BUN/Creatinine Ratio (10-20) Glucose (70-99(Fasting)) mg/dl Calcium (8.5-10.1) mg/dl Phosphorus (2.5-4.9) mg/dl Magnesium (1.7-2.4) mg/dl Total Bilirubin (0.2-1.0) mg/dl Direct Bilirubin (0-0.2) mg/dl AST (13-39) U/L ALT (7-52) U/L Alkaline Phosphatase (34-104) U/L Total Protein (6.0-8.3) gm/dl Albumin (3.4-5.0) gm/dl Globulin (2.5-4.0) gm/dl Albumin/Globulin Ratio (0.9-2) TSH 3.361 (0.300-4.500) uIu/ml Urine Color Urine Appearance (Clear) Urine pH (4.5-7.5) Ur Specific [place] (1.000-1.030) Urine Protein (Negative) Urine Glucose (UA) (Negative) Urine Ketones (Negative) Urine Blood (Negative) Urine Nitrite (Negative) Urine Bilirubin (Negative) Urine Urobilinogen (Negative) Ur Leukocyte Esterase (Negative) Salicylates < 3.0 L (3.0-30) mg/dl Urine Opiates Screen (Neg) Ur Methadone, Qual (Neg) Acetaminophen < 3 L (10-30) ug/ml Urine Barbiturates (Neg) Ur Phencyclidine (PCP) (Neg) U Amphetamines Confirm U Amphetamin/Meth Scrn (Neg) U Methamphetamin Confrm MDMA (Ecstasy) Screen (Neg) U Benzodiazepines Scrn (Neg) Ur Cocaine Metabolite (Neg) U Marijuana (THC) Screen (Neg) U Marijuana THC Carboxy Drug Screen Comment Ethyl Alcohol mg/dL < 10.0 (<10.0) mg/dl SARS-CoV-2, RNA, NAAT (NEGATIVE) 08/07/22 08/07/22 Range/Units 12:55 12:55 WBC 11.76 H (4.8-10.8) K/ul RBC 5.13 (4.20-5.40) M/uL Hgb 15.7 (12.0-16.0) g/dl Hct 45.0 (37.0-47.0) % MCV 87.7 (80.0-100.0) fL MCH 30.6 (25.0-34.0) pg MCHC 34.9 (32.0-36.0) g/dL RDW Std Deviation 40.9 (36.4-46.3) fL RDW Coeff of Savi 12.7 (11.5-14.5) % Plt Count 390 (130-400) K/uL MPV 10.3 (9.4-12.4) fL Immature Gran % (Auto) 0.3 % Neut % (Auto) 70.4 % Lymph % (Auto) 21.7 % [place] % (Auto) 6.6 % Eos % (Auto) 0.3 % Baso % (Auto) 0.7 % Neut # (Auto) 8.28 H (1.40-6.50) K/uL Lymph # (Auto) 2.55 (1.2-3.4) K/uL [place] # (Auto) 0.78 H (0.11-0.59) K/uL Eos # (Auto) 0.03 (0-0.50) K/uL Baso # (Auto) 0.08 (0-0.2) K/uL Immature Gran # (Auto) 0.04 (0.01-0.20) K/uL Sodium 139 (136-145) mmol/L Potassium 3.6 (3.5-5.1) mmol/L Chloride 101 (98-107) mmol/L Carbon Dioxide 30 (21-32) mmol/L Anion Gap 8 (3-11) BUN 12 (6-23) mg/dl Creatinine 0.79 (0.6-1.2) mg/dl Est Cr Clr Drug Dosing 128.1 ml/min Est GFR ( Amer) 115.6 ml/min Est GFR (Non-Af Amer) 99.8 ml/min BUN/Creatinine Ratio 15.2 (10-20) Glucose 108 H (70-99(Fasting)) mg/dl Calcium 10.5 H (8.5-10.1) mg/dl Phosphorus 3.6 (2.5-4.9) mg/dl Magnesium 2.2 (1.7-2.4) mg/dl Total Bilirubin 0.3 (0.2-1.0) mg/dl Direct Bilirubin 0.0 (0-0.2) mg/dl AST 26 (13-39) U/L ALT 26 (7-52) U/L Alkaline Phosphatase 106 H (34-104) U/L Total Protein 8.5 H (6.0-8.3) gm/dl Albumin 4.8 (3.4-5.0) gm/dl Globulin 3.7 (2.5-4.0) gm/dl Albumin/Globulin Ratio 1.3 (0.9-2) TSH (0.300-4.500) uIu/ml Urine Color Urine Appearance (Clear) Urine pH (4.5-7.5) Ur Specific [place] (1.000-1.030) Urine Protein (Negative) Urine Glucose (UA) (Negative) Urine Ketones (Negative) Urine Blood (Negative) Urine Nitrite (Negative) Urine Bilirubin (Negative) Urine Urobilinogen (Negative) Ur Leukocyte Esterase (Negative) Salicylates (3.0-30) mg/dl Urine Opiates Screen (Neg) Ur Methadone, Qual (Neg) Acetaminophen (10-30) ug/ml Urine Barbiturates (Neg) Ur Phencyclidine (PCP) (Neg) U Amphetamines Confirm U Amphetamin/Meth Scrn (Neg) U Methamphetamin Confrm MDMA (Ecstasy) Screen (Neg) U Benzodiazepines Scrn (Neg) Ur Cocaine Metabolite (Neg) U Marijuana (THC) Screen (Neg) U Marijuana THC Carboxy Drug Screen Comment Ethyl Alcohol mg/dL (<10.0) mg/dl SARS-CoV-2, RNA, NAAT (NEGATIVE) Medications Administered Current Inpatient Medications Acetaminophen (Acetaminophen 325 Mg Tab) 650 mg PO Q4H PRN PRN Reason: Pain or Fever Stop: 09/06/22 16:22 Al Hydrox/Mg Hydrox/Simethicone (Aluminum/Magnesium Susp 30 Ml Udc) 15 ml PO Q4H PRN PRN Reason: Dyspepsia Stop: 09/06/22 16:22 Gabapentin (Gabapentin 600 Mg Tab) 600 mg PO Q24H SANDRA Stop: 08/11/22 06:01 Gabapentin (Gabapentin 600 Mg Tab) 600 mg PO Q12H SANDRA Stop: 08/10/22 06:01 Gabapentin (Gabapentin 600 Mg Tab) 600 mg PO Q8H SANDRA Stop: 08/09/22 06:01 Thiamine HCl 100 mg/ Syringe 10 mls @ 2 mls/min IV QAM SANDRA Stop: 09/06/22 17:14 Last Admin: 08/07/22 17:53 Dose: 2 mls/min Folic Acid 1 mg/ Syringe 10 mls @ 5 mls/min IV QAM SANDRA Stop: 09/06/22 17:14 Last Admin: 08/07/22 17:53 Dose: 5 mls/min Lorazepam (Lorazepam 2 Mg/1 Ml Vial) 1 mg IV Q8H PRN; Protocol PRN Reason: EtOH Withdrawal AWSS Score 6,7 Stop: 09/06/22 16:22 Magnesium Hydroxide (Magnesium Hydroxide Susp 30 Ml Udc) 30 ml PO Q12H PRN PRN Reason: Constipation Stop: 09/06/22 16:22 Ondansetron HCl (Ondansetron Inj 2 Mg/Ml 2 Ml Vial) 4 mg IV Q6H PRN PRN Reason: Nausea Stop: 09/06/22 16:22 Polyethylene Glycol (Polyethylene (Miralax) 17 Gm Pack) 17 gm PO DAILY PRN PRN Reason: Constipation Stop: 09/06/22 16:22
[2022-08-08] MEDS ORDERED: FOLIC ACID 1 MG TAB PO ONE (10:41)
[2022-08-08] MEDS ORDERED: THIAMINE HCL 100 MG TAB PO ONE (10:41)
[2022-08-08] MEDS: FOLIC ACID 1 MG in SYRINGE 9.8 ML IV SCH (10:50)
[2022-08-08] MEDS: THIAMINE HCL 100 MG in SYRINGE 9 ML IV SCH (10:51)
--- NOTE | 2022-08-08 10:59 | Discharge Summary ---
Date of Service August 08, 2022 Admission HPI Per Admitting Provider Mr. Herrera is a 32-year-old male that presents to the emergency department seeking assistance with arrangement of alcohol and drug rehabilitation. Patient reports that he has used methamphetamine since 04/2022 and also is a daily alcohol drinker. Patient reports that he at times feels paranoia with reading magazine articles and watching TV shows that he feels are related directly to him. Patient with slight leukocytosis WBC 11.76. Otherwise electrolytes and other labs unremarkable. Urinalysis tox screen positive for marijuana and methamphetamine. Slight tachycardia in ED with response to 1 mg Ativan. Patient has hypertension but does not take any medication for this. 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 He says that his stress levels were high and recently terminated a relationship with a man which led him to feeling pressured into using by a peer. Patient has a friend that knows that he is here and is his point of contact. Patient indicates that his family would "not understand" so at this time did not feel he was able to reach out to them. ED case management arrange financial assistance for this gentleman through [facility] and goal is for him to be admitted to [facility] 08/08/2022. Case management arranging transportation details and confirm their capabilities. No other pertinent medical history. Patient will be admitted overnight for further evaluation and management. Please see A/P for further details. Admission Exam Per Admitting Provider Neuro: AAOx4, PERRLA, no aphagia, memory changes, CNII-XII grossly intact HEENT: head normocephalic, moist mucus membranes CV: S1/S2, tachycardic (-) M/G/R, (-) edema, cap refill < 3 seconds Resp: Lungs CTA in all pineda. On RA GI: Abdomen S/NT/ND, Ax4 bowel sounds, (-) CVA tenderness Musculoskeletal: 5/5 B/L UE strength, 5/5 B/L LE strength. No gait disturbance Skin: (-) rashes , (-) erythema. Psych: paranoid mood Principal Diagnosis Alcohol abuse, methamphetamine use Discharge Exam General: young M in NAD Neuro/Psych: AAOx4, PERRL, answering simple questions appropriately, no facial asymmetry, moves extremities, speech fluent, denies any visual or tactile hallucinations HEENT: NC/AT. EOMI, moist mucus membranes CV: S1/S2, rrr, (-) edema Resp: Lungs CTA in all pineda. On RA GI: Abdomen S/NT/ND, Ax4 bowel sounds, (-) CVA tenderness Musculoskeletal: moves extremities, no weakness Skin: (-) rashes , (-) erythema. Discharge Data Allergies Allergy/AdvReac Type Severity Reaction Status Date / Time No Known Allergies Allergy Verified 08/07/22 17:05 Consultations 08/07/22 16:37 ED Decision to Admit Stat Hospital Course (1) Alcohol abuse with withdrawal: (2) Tachycardia: -Drinks approximately one 6 pack of beer per day -Reports that he drank 13 shots of Ivette night before admission -Tachycardic in ED; received 1 mg Ativan -AWSS scale protocol ordered; IV Thiamine and IV Folic Acid ordered now and to continue -Banana bag ordered -Check Mg+ and Phos+ -Ativan 1 mg IV Q 8 PRN -Case management arranging transport possibly for AM on 08/08 for transfer to [facility]. 08/08 this morning patient is sitting up in chair, alert oriented answering simple questions appropriately. -Was started on gabapentin protocol on admission. Discussed with [facility] over the phone this morning, they are expecting the patient to arrive today. (3) Methamphetamine use: -Started using 05/12 -Last use last evening at 2200 -Would like to proceed to rehabilitation for alcohol and rug rehab Plan Disposition: Plan to DC to rehab Total Time Total Time Spent Total Time Spent (In Minutes): 40 Discharge Plan Discharge Items Patient Disposition: Transfer Inpatient Rehab Fac Reason For Visit: ETOH WD Discharge Diagnosis: Alcohol abuse, methamphetamine use Activity: Per Instructions section Non-emergency contact: Primary Care Provider and Specialist Call non-emergency contact if: you have any medication questions and your symptoms worsen Follow-up/Referrals: PCP,NO [Primary Care Provider] - Diet: Regular Addtl Attending Provider Instructions: [facility] Follow-up with primary care physician after your rehab stay. Pending Studies at Discharge: Yes Studies:: final UDS results Stand-Alone Forms: My [facility] Skilled Items Patient informed of condition?: Yes DNR: No Discharge Level of Care: Acute rehab Communicable Disease: No Discharge Prognosis: Other Lines: None Urinary Catheter: No Medications and DC Order Discharge Orders: Discharge Order (Routine); Ordered 08/08/22 Ordered By: Michael Underwood Admission Data Admit Date/Time: 08/07/22 16:23 Attending Provider: Michael Underwood Admit Provider: Michael Underwood Primary Care Provider: PCP,NO Other Providers: Michael Underwood
--- NOTE | 2022-08-08 11:27 | Electrocardiogram Report ---
Test Reason : Blood Pressure : / mmHG Vent. Rate : 083 BPM Atrial Rate : 083 BPM P-R Int : 146 ms QRS Dur : 090 ms QT Int : 402 ms P-R-T Axes : 044 095 051 degrees QTc Int : 472 ms Normal sinus rhythm Rightward axis Borderline ECG When compared with ECG of 07-AUG-2022 12:42, No significant change was found Confirmed by Bo Michael ([id number] on 08/08/2022 11:27:06 AM Referred By: REFERRED SELF Confirmed By:Bo Michael
[2022-08-08] MEDS ORDERED: LORazepam 1 MG TAB PO STA (12:45)
[2022-08-08] MEDS ORDERED: GABAPENTIN 600 MG TAB PO SCH (14:00)
[2022-08-09] MEDS ORDERED: GABAPENTIN 600 MG TAB PO SCH (18:00)
[2022-08-10 11:02] LABS: Amphetamine Urine, Confirm NEGATIVE ng/mL (<250); Marijuana Quant, GCMS Urine 36 ng/mL (<5); Methamphetamine, Ur Confirm 1506 ng/mL (<250)
[2022-08-11] MEDS ORDERED: GABAPENTIN 600 MG TAB PO SCH (06:00)
[2022-08-11 08:03] LABS: Est GFR (African American) 138.7 ml/min; Est GFR (Non-African American) 119.7 ml/min
[2022-08-11 08:04] LABS: Creatinine Clr Calc Pharmacy 144.3 ml/min
[2022-08-11 08:05] LABS: Hemoglobin 15.7 g/dl (14.0-18.0); Red Blood Count 5.13 M/uL (4.70-6.10)
== END 2022-08-08 14:06 | disposition alcohol treatment (31) | DRG 897 ==
LOC: EDSEX 12:06 → ED 12:06 → EDINP 16:23 → 2W 19:42